=== PATIENT | male | born 1965 | race Caucasian/White ===

== ENCOUNTER 2025-04-23 10:20 | Outpatient (CLI) | payer MEDICAID ==
[~2025-04-23 10:20] MED LIST: NO HOME MEDS
[2025-04-23] MEDS ORDERED: GADOTERATE MEGLUMINE 7.5 MMOL/15 ML VIAL IV ONE (12:30)
--- NOTE | 2025-04-23 12:53 | RADIOLOGY REPORT ---
PROCEDURE: MR MRI HEAD Indication: OTHER VISUAL DISTURBANCES COMPARISON: None TECHNIQUE: Multiplanar multisequence images of the brain are obtained with and without contrast FINDINGS: There is no abnormal diffusion restriction. There is no intracranial hemorrhage. No extra-axial fluid collection, mass effect or midline shift. The ventricles are midline and normal in size. The cisterns are patent. Normal intracranial flow voids are preserved. No abnormal susceptibility signal. There is mild global cerebral volume loss. There is no abnormal intracranial enhancement. Maxillary sinus disease. Left maxillary sinus mucosal retention cyst / polyp measuring 1.8 cm. Mucosal thickening left maxillary sinus. The visualized orbits are unremarkable. IMPRESSION: No acute cerebrovascular ischemia. Mild global cerebral volume loss. Left maxillary sinus disease.
== END 2025-04-23 23:59 | disposition home or self-care (01) ==
LOC: MRI 10:20
PROVIDERS: ATTEND Physician Assistant
DX: J32.0 Chronic maxillary sinusitis (principal); J34.89 Other specified disorders of nose and nasal sinuses; R90.89 Other abnormal findings on diagnostic imaging of central nervous system; H53.8 Other visual disturbances
CPT/HCPCS: 70553; A9575